=== PATIENT | female | born 1945 | race African-American/Black ===

== ENCOUNTER 2018-01-28 12:48 | Emergency (ER) | payer BC, MEDICARE ==
[2018-01-28] MEDS: fentaNYL PF VIAL 100 MCG/2 ML VIAL IV (13:15)
[2018-01-28 13:30] LABS: BILIRUBIN,URINE NEGATIVE (NEG); CLARITY,URINE TURBID; COLOR,URINE YELLOW; GLUCOSE,URINE NEGATIVE (NEG); NITRITE,URINE NEGATIVE (NEG); PH,URINE 6.5; PROTEIN,URINE >=300 mg/dL (NEG-TRACE); UROBILINOGEN,URINE 0.2 mg/dL (0.2 mg/dL)
[2018-01-28 13:34] LABS: BACTERIA,URINE MANY /HPF (0-FEW); WBC,URINE TNTC /HPF (0-4)
[2018-01-28 13:35] LABS: RBC,URINE FOBS /HPF (0-2)
[2018-01-28 13:36] LABS: ADD MAN DIFF? NO
[2018-01-28 13:42] LABS: BASO % 0 % (0-3); EOS % 0 % (0-3); HEMATOCRIT 36.5 % (36.0-47.0); HEMOGLOBIN 12.5 g/dL (12.0-15.5); LYMPH # 0.8 x10^3/uL (1.0-4.8); LYMPH % 12 % (24-48); MEAN CORPUSCULAR HEMOGLOBIN 31 pg (25-35); MEAN CORPUSCULAR HGB CONC 34 g/dL (31-37); MEAN CORPUSCULAR VOLUME 91 fL (79-100); MONO # 0.6 x10^3/uL (0.0-1.1); MONO % 9 % (0-9); NEUT # 5.7 x10^3uL (1.8-7.7); NEUT % 79 % (31-73); PLATELET COUNT 241 x10^3/uL (140-400); RED BLOOD COUNT 4.03 x10^6/uL (3.50-5.40); RED CELL DISTRIBUTION WIDTH 13.4 % (11.5-14.5); WHITE BLOOD COUNT 7.2 x10^3/uL (4.0-11.0)
[2018-01-28 13:51] LABS: ANION GAP 12 (6-14); BLOOD UREA NITROGEN 18 mg/dL (7-20); BUN/CREATININE RATIO 13 (6-20); CALCIUM 8.9 mg/dL (8.5-10.1); CARBON DIOXIDE 24 mmol/L (21-32); CHLORIDE 100 mmol/L (98-107); CREATININE 1.4 mg/dL (0.6-1.0); GFR 44.9; GLUCOSE 135 mg/dL (70-99); POTASSIUM 4.1 mmol/L (3.5-5.1); SODIUM 136 mmol/L (136-145)
[2018-01-28] MEDS: ONDANSETRON PF 4 MG/2 ML VIAL. IV (13:52)
[2018-01-28] MEDS: IV NORMAL SALINE 500ML BAG 500 ML IV (13:53)
[2018-01-28] MEDS: ACETAMINOPHEN 325 MG TABLET. PO (13:53)
[2018-01-28 13:57] LABS: ALBUMIN 3.8 g/dL (3.4-5.0); ALBUMIN/GLOBULIN RATIO 1.2 (1.0-1.7); ALK PHOS 58 U/L (46-116); ALT (SGPT) 21 U/L (14-59); AST (SGOT) 16 U/L (15-37); LIPASE 102 U/L (73-393); TOTAL BILIRUBIN 1.2 mg/dL (0.2-1.0)
== END 2018-01-28 16:38 | disposition home or self-care (01) ==
LOC: ER 12:48
DX: N39.0 Urinary tract infection, site not specified (principal); I12.9 Hypertensive chronic kidney disease with stage 1 through stage 4 chronic kidney disease, or unspecified chronic kidney disease; N18.3 Chronic kidney disease, stage 3 (moderate); M54.9 Dorsalgia, unspecified; Z88.2 Allergy status to sulfonamides; Z88.1 Allergy status to other antibiotic agents
CPT/HCPCS: 36415; 74176; 80053; 81001; 83690; 85025; 87086; 87186; 96365; 96375; 99285-25; J0690; J2405; J7040

== ENCOUNTER 2018-05-17 08:45 | Emergency (ER) | payer MEDICARE ==
[~2018-05-17] VITALS: Ht 160 cm; Wt 79.4 kg
[~2018-05-17 08:45] MED LIST: ASPI-482 PO; CIPR500T94 PO; FERR325T14 PO; LISI1TAB5 PO
[2018-05-17] MEDS ORDERED: ONDANSETRON PF 4 MG/2 ML VIAL. IV ONE (09:15)
[2018-05-17] MEDS ORDERED: IV NORMAL SALINE 1000ML BAG 1,000 ML IV ONE (09:15)
[2018-05-17] MEDS ORDERED: DICYCLOMINE HCL 10 MG CAPSULE PO ONE (09:15)
[2018-05-17] MEDS ORDERED: PANTOPRAZOLE IV PUSH 40 MG VIAL. IVP ONE (09:15)
[2018-05-17 09:23] LABS: BILIRUBIN,URINE NEGATIVE (NEG); CLARITY,URINE TURBID; COLOR,URINE AMBER; NITRITE,URINE POSITIVE (NEG); PH,URINE 5.5; PROTEIN,URINE >=300 mg/dL (NEG-TRACE); UROBILINOGEN,URINE 0.2 mg/dL (0.2 mg/dL)
--- NOTE | 2018-05-17 09:27 | PHYS DOC ---
Past Medical History Past Medical History: Hypertension, UTI, Other Additional Past Medical Histor: CHRONIC KIDNEY FAILURE STAGE III Past Surgical History: Other Additional Past Surgical Histo: BREAST BIOPSY Alcohol Use: None Drug Use: None Adult General Chief Complaint Chief Complaint: DIARRHEA HPI HPI Patient is a 73 year old female with history of hypertension who presents today complaining of diarrhea and urinary frequency that began last night. Patient states last time she had similar symptoms she had a UTI. She is also complaining of slight left flank pain. She states the pain is intermittent and sharp. She states she's been told she has a fatty kidney. Patient states she has nausea with no vomiting. Denies any melena. Denies any fever. Review of Systems Review of Systems Constitutional: Denies fever or chills [] Eyes: Denies change in visual acuity, redness, or eye pain [] HENT: Denies nasal congestion or sore throat [] Respiratory: Denies cough or shortness of breath [] Cardiovascular: No additional information not addressed in HPI [] GI: Reports nausea and diarrhea, denies abdominal pain bloody stools : Reports urinary frequency. Reports left flank pain. Denies dysuria or hematuria [] Musculoskeletal: Denies back pain or joint pain [] Integument: Denies rash or skin lesions [] Neurologic: Denies headache, focal weakness or sensory changes [] All other systems were reviewed and found to be within normal limits, except as documented in this note. Current Medications Current Medications Current Medications Medications (Trade) Dose Ordered Sig/Jolanta Start Time Stop Time Status Last Admin Dose Admin Ceftriaxone Sodium 50 ml @ 100 mls/hr 1X ONCE 05/17/18 10:15 05/17/18 10:44 DC 05/17/18 10:34 100 MLS/HR Dicyclomine HCl (Bentyl) 20 mg 1X ONCE 05/17/18 09:15 05/17/18 09:16 DC 05/17/18 09:23 20 MG Ondansetron HCl (Zofran) 4 mg 1X ONCE 05/17/18 09:15 05/17/18 09:16 DC 05/17/18 09:23 4 MG Pantoprazole Sodium (PROTONIX VIAL for IV PUSH) 40 mg 1X ONCE 05/17/18 09:15 05/17/18 09:16 DC 05/17/18 09:23 40 MG Sodium Chloride 1,000 ml @ 1,000 mls/hr 1X ONCE 05/17/18 09:15 05/17/18 10:14 DC 05/17/18 09:23 1,000 MLS/HR Allergies Allergies Allergies Coded Allergies Type Severity Reaction Last Updated Verified sulfamethoxazole Allergy Intermediate NAUSEA/VOMITING 08/10/15 Yes trimethoprim Allergy Intermediate NAUSEA/VOMITING 08/10/15 Yes Physical Exam Physical Exam Constitutional: Well developed, well nourished, no acute distress, non-toxic appearance. [] HENT: Normocephalic, atraumatic, bilateral external ears normal, oropharynx moist, no oral exudates, nose normal. [] Eyes: PERRLA, EOMI, conjunctiva normal, no discharge. [] Neck: Normal range of motion, no tenderness, supple, no stridor. [] Cardiovascular:Heart rate regular rhythm, no murmur [] Lungs & Thorax: Bilateral breath sounds clear to auscultation [] Abdomen: Bowel sounds normal, soft, no tenderness, no masses, no pulsatile masses. [] Skin: Warm, dry, no erythema, no rash. [] Back: No tenderness, no CVA tenderness. [] Extremities: No tenderness, no cyanosis, no clubbing, ROM intact, no edema. [] Neurologic: Alert and oriented X 3, normal motor function, normal sensory function, no focal deficits noted. [] Psychologic: Affect normal, judgement normal, mood normal. [] Current Patient Data Vital Signs Vital Signs Date Time Temp Pulse Resp B/P (MAP) Pulse Ox O2 Delivery O2 Flow Rate FiO2 05/17/18 10:38 71 20 120/77 (91) 98 05/17/18 08:56 98.2 Room Air 98.2 Lab Values Laboratory Tests Test 05/17/18 09:00 05/17/18 10:00 Urine Collection Type Unknown Urine Color Kirstin Urine Clarity Turbid Urine pH 5.5 Urine Specific Pana 1.020 Urine Protein >=300 mg/dL (NEG-TRACE) Urine Glucose (UA) Negative mg/dL (NEG) Urine Ketones (Stick) Negative mg/dL (NEG) Urine Blood Large (NEG) Urine Nitrite Positive (NEG) Urine Bilirubin Negative (NEG) Urine Urobilinogen Dipstick 0.2 mg/dL (0.2 mg/dL) Urine Leukocyte Esterase Large (NEG) Urine RBC Fobs /HPF (0-2) Urine WBC Tntc /HPF (0-4) Urine Bacteria Many /HPF (0-FEW) White Blood Count 7.6 x10^3/uL (4.0-11.0) Red Blood Count 4.21 x10^6/uL (3.50-5.40) Hemoglobin 13.0 g/dL (12.0-15.5) Hematocrit 38.0 % (36.0-47.0) Mean Corpuscular Volume 90 fL (79-100) Mean Corpuscular Hemoglobin 31 pg (25-35) Mean Corpuscular Hemoglobin Concent 34 g/dL (31-37) Red Cell Distribution Width 13.7 % (11.5-14.5) Platelet Count 243 x10^3/uL (140-400) Neutrophils (%) (Auto) 84 % (31-73) H Lymphocytes (%) (Auto) 9 % (24-48) L Monocytes (%) (Auto) 7 % (0-9) Eosinophils (%) (Auto) 0 % (0-3) Basophils (%) (Auto) 0 % (0-3) Neutrophils # (Auto) 6.4 x10^3uL (1.8-7.7) Lymphocytes # (Auto) 0.7 x10^3/uL (1.0-4.8) L Monocytes # (Auto) 0.5 x10^3/uL (0.0-1.1) Eosinophils # (Auto) 0.0 x10^3/uL (0.0-0.7) Basophils # (Auto) 0.0 x10^3/uL (0.0-0.2) Sodium Level 136 mmol/L (136-145) Potassium Level 4.5 mmol/L (3.5-5.1) Chloride Level 100 mmol/L (98-107) Carbon Dioxide Level 25 mmol/L (21-32) Anion Gap 11 (6-14) Blood Urea Nitrogen 20 mg/dL (7-20) Creatinine 1.4 mg/dL (0.6-1.0) H Estimated GFR (Cockcroft-Gault) 44.9 BUN/Creatinine Ratio 14 (6-20) Glucose Level 128 mg/dL (70-99) H Calcium Level 9.5 mg/dL (8.5-10.1) Total Bilirubin 0.8 mg/dL (0.2-1.0) Aspartate Amino Transferase (AST) 23 U/L (15-37) Alanine Aminotransferase (ALT) 26 U/L (14-59) Alkaline Phosphatase 56 U/L (46-116) Total Protein 7.7 g/dL (6.4-8.2) Albumin 3.8 g/dL (3.4-5.0) Albumin/Globulin Ratio 1.0 (1.0-1.7) Lipase 177 U/L (73-393) Laboratory Tests 05/17/18 10:00 Laboratory Tests 05/17/18 10:00 EKG EKG [] Radiology/Procedures Radiology/Procedures [] Course & Med Decision Making Course & Med Decision Making Pertinent Labs and Imaging studies reviewed. (See chart for details) This is a 73-year-old female patient presented to the ED today with complaints of diarrhea, nausea, and urinary frequency that began last night. Urine noted for nitrites and leukocytes. CBC with a normal WBC, CMP with creatinine of 1.[address] of the abdomen and pelvic was negative for any acute findings , noted for a fatty kidney. This is not an acute finding patient states it is chronic. Patient was hydrated in the ED. Started on IV Rocephin. Feeling better. D/c with Cephalaxin. F/u with PCP in one week. Dragon Disclaimer Dragon Disclaimer This electronic medical record was generated, in whole or in part, using a voice recognition dictation system. Departure Departure Impression: Primary Impression: UTI (lower urinary tract infection) Additional Impression: Diarrhea Disposition: 01 HOME, SELF-CARE Condition: STABLE Referrals: BEN HERNANDEZ APRN (PCP) Follow-up in 1-2 weeks Patient Instructions: Diarrhea, [id number], Urinary Tract Infection Additional Instructions: You were evaluated in the emergency room and noted to have urinary tract infection as well as diarrhea. Please push fluids. Complete your antibiotics. Follow-up with your doctor in 1-2 weeks. Scripts Ondansetron (ZOFRAN ODT) 4 Mg Tab.rapdis 1 TAB SL Q8HRS, #15 TAB Prov: BARBIE STEPHENS APRN 05/17/18 Cephalexin (CEPHALEXIN) 500 Mg Tablet 1 TAB PO BID, #14 TAB Prov: BARBIE STEPHENS APRN 05/17/18 Problem Qualifiers Additional Impression: Diarrhea Diarrhea type: unspecified type Qualified Codes: R19.7 - Diarrhea, unspecified MUTBARBIE TINOCO RN ASSESSMENT May 17, 2018 09:27
[2018-05-17 09:29] LABS: BACTERIA,URINE MANY /HPF (0-FEW); RBC,URINE FOBS /HPF (0-2); WBC,URINE TNTC /HPF (0-4)
[2018-05-17 10:08] LABS: BASO % 0 % (0-3); EOS % 0 % (0-3); LYMPH # 0.7 x10^3/uL (1.0-4.8); LYMPH % 9 % (24-48); MEAN CORPUSCULAR HEMOGLOBIN 31 pg (25-35); MEAN CORPUSCULAR HGB CONC 34 g/dL (31-37); MEAN CORPUSCULAR VOLUME 90 fL (79-100); MONO # 0.5 x10^3/uL (0.0-1.1); MONO % 7 % (0-9); NEUT # 6.4 x10^3uL (1.8-7.7); NEUT % 84 % (31-73); PLATELET COUNT 243 x10^3/uL (140-400); RED BLOOD COUNT 4.21 x10^6/uL (3.50-5.40); RED CELL DISTRIBUTION WIDTH 13.7 % (11.5-14.5); WHITE BLOOD COUNT 7.6 x10^3/uL (4.0-11.0)
[2018-05-17 10:27] LABS: CALCIUM 9.5 mg/dL (8.5-10.1); CREATININE 1.4 mg/dL (0.6-1.0); GFR 44.9; POTASSIUM 4.5 mmol/L (3.5-5.1)
[2018-05-17 10:33] LABS: ALBUMIN 3.8 g/dL (3.4-5.0); TOTAL BILIRUBIN 0.8 mg/dL (0.2-1.0); TOTAL PROTEIN 7.7 g/dL (6.4-8.2)
--- NOTE | 2018-05-17 10:41 | RAD ---
CT Abdomen and Pelvis without contrast History: Left side flank pain Technique: Noncontrast CT imaging was performed of the abdomen and pelvis. Multiplanar images are reviewed. Exposure: One or more of the following individualized dose reduction techniques were utilized for this examination: 1. Automated exposure control 2. Adjustment of the mA and/or kV according to patient size 3. Use of iterative reconstruction technique. Comparison: August 12, 2015 and January 28, 2018 Findings: There again thin wall air cysts of the bilateral lung bases. Normal kidneys are replaced by large areas of partially fat density as seen previously with loss of definition of the normal renal morphology although similar in overall appearance. There is again more defined cystic focus in the superior left renal fossa also unchanged about 7.7 cm AP by 5.4 cm transverse by 6.4 cm CC, similar comparing with older exam. There is no calculus in the region of the distorted kidneys or in the expected course of ureters. There is no new hematoma. Gallbladder is present without obvious intraluminal abnormality by CT. There is no new obvious abnormality of the liver, spleen, or pancreas allowing for noncontrast technique. Bowel is not significantly dilated, somewhat limited evaluation without oral contrast. Normal appendix is visualized. There is coronary calcification. There is stable lytic focus of L3 vertebral body more likely due to hemangioma. There is degenerative disc disease greatest L3-4. Impression: 1. 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 No new abnormality is identified. There is again larger cystic focus in the superior left renal fossa believed to be due to chronic, very dilated left renal pelvis. 2. There is coronary calcification. Electronically signed by: Manas Mancera MD (05/17/2018 10:37 AM) [id number]
[2018-05-17] MEDS ORDERED: ONDA4TAB10 SL (11:23)
[2018-05-17] MEDS ORDERED: CEPH500T PO (11:23)
[2018-05-17 12:21] VITALS: BP 120/76
== END 2018-05-17 12:22 | disposition home or self-care (01) ==
LOC: ER 08:45
DX: N39.0 Urinary tract infection, site not specified (principal); R19.7 Diarrhea, unspecified; I12.9 Hypertensive chronic kidney disease with stage 1 through stage 4 chronic kidney disease, or unspecified chronic kidney disease; N18.3 Chronic kidney disease, stage 3 (moderate); Z88.1 Allergy status to other antibiotic agents; Z88.2 Allergy status to sulfonamides
CPT/HCPCS: 36415; 74176; 80053; 81001; 83690; 85025; 87086; 96361; 96365; 96375; 99285; C9113; J0690; J2405; J7030; 87186